=== PATIENT | female | born 1955 | race Caucasian/White ===

== ENCOUNTER 2018-02-12 08:17 | Day surgery (SDC) | payer BC ==
[~2018-02-12 08:17] MED LIST: Bupivacaine 0.5%/EPINEPHrine 1:200,000 50 ML MDV ONE; Midazolam 1 MG/ML 2 ML SDV ONE; Propofol 200 MG/20 ML SDV ONE; fentaNYL 100 MCG/2 ML SDV ONE
[2018-02-12] MEDS ORDERED: Dextrose 5%-Lactated Ringers 1,000 ML IV SCH (09:45)
--- NOTE | 2018-02-23 09:14 | OR ---
DATE OF PROCEDURE: 02/12/2018 PREOPERATIVE DIAGNOSIS: Prolapsed thrombosed hemorrhoid. POSTOPERATIVE DIAGNOSIS: Prolapsed thrombosed hemorrhoid associated with adherence of blood in the hemorrhoidal wall. OPERATIVE PROCEDURE: Incision and drainage of thrombosed hemorrhoid with excision of involved hemorrhoid, single column ([id number]). ANESTHESIA: General. ELECTRICIAN SUBSTATION: PAS. Inés INDICATION FOR PROCEDURE: This is a 62-year-old presenting with a painful thrombosed hemorrhoid. Plan is to proceed with drainage of this. Potential risks including bleeding and infection were reviewed, and the patient wishes to proceed. She was also aware there was some possibility of the issues of fecal incontinence following the procedure, and likewise, wishes to proceed. DETAILS OF PROCEDURE: The patient was taken to the operating room and placed in a supine position. After general endotracheal anesthesia was induced, converted to the lithotomy position. The thrombosed hemorrhoid which was located posteriorly was then incised and the clot was then evacuated from this. The wall of the hemorrhoid had quite a bit in the way of hemosiderin-type staining, which was felt probably due to continued inflammation. Given this, the single column of hemorrhoid which was mixed internal and external hemorrhoids, at this point was excised and that wound then left open. After cauterization of some bleeding, the area was anesthetized with 0.25% Marcaine. A roseanna pad was placed, and the patient was taken to the recovery room in satisfactory condition. There were no evident complications noted. Carloz Roberto MD Job #: [id number]
== END 2018-02-12 12:05 | disposition home or self-care (01) ==
LOC: JP.SDS 08:17
PROVIDERS: ATTEND Surgery
DX: K64.5 Perianal venous thrombosis (principal); K21.9 Gastro-esophageal reflux disease without esophagitis; E03.9 Hypothyroidism, unspecified; I10 Essential (primary) hypertension; E78.5 Hyperlipidemia, unspecified; E66.9 Obesity, unspecified; Z68.32 Body mass index [BMI] 32.0-32.9, adult; Z79.82 Long term (current) use of aspirin; Z79.899 Other long term (current) drug therapy; Z88.1 Allergy status to other antibiotic agents; Z88.5 Allergy status to narcotic agent; Z88.6 Allergy status to analgesic agent; Z88.8 Allergy status to other drugs, medicaments and biological substances; Z91.041 Radiographic dye allergy status
CPT/HCPCS: 46320; 88304; A9270; J2250; J2704; J3010; J7042

== ENCOUNTER 2020-02-03 19:27 | Emergency (ER) | payer MEDICARE, BC ==
--- NOTE | 2020-02-03 20:28 | EDM.PDOC ---
ED HPI GENERAL MEDICAL PROBLEM - General Chief Complaint: Genitourinary Problem Stated Complaint: POSSIBLE UTI Time Seen by Provider: 02/03/20 20:15 Source of Information: Reports: Patient History Limitations: Reports: No Limitations - History of Present Illness INITIAL COMMENTS - FREE TEXT/NARRATIVE: 64-year-old female with dysuria and increased urinary frequency for the past 12 hours. She took some cranberry pills but it is not significantly improving so she came in to be checked. No fevers or chills or back pain. She has had UTIs in the past. Onset: Sudden (Symptoms started fairly suddenly 12 hours ago) Associated Symptoms: Reports: No Other Symptoms Pelvic Pain Score (Numeric/FACES): 4 - Related Data Allergies Allergy/AdvReac Type Severity Reaction Status Date / Time ciprofloxacin Allergy Cannot Verified 02/03/20 19:49 Remember codeine Allergy Hallucinati Verified 02/03/20 19:49 ons iodine Allergy Swelling Verified 02/03/20 19:49 lansoprazole Allergy Shaking Verified 02/03/20 19:49 [From PREVACID NapraPAC] naproxen Allergy Shaking Verified 02/03/20 19:49 [From PREVACID NapraPAC] Home Meds: Home Meds Aspirin 81 mg PO DAILY 02/11/18 [History] Diclofenac Sodium [Voltaren] 100 gm TP QID PRN 02/11/18 [History] Glucosam/Chondr/Collagn/Hyalur [Glucosamine & Chondroitin Cap] 1 each PO DAILY 02/11/18 [History] Levothyroxine Sodium [Synthroid] 75 mg PO DAILY 02/11/18 [History] Losartan [Cozaar] 50 mg PO DAILY 02/11/18 [History] Multivitamin [Multivitamins] 1 each PO DAILY 02/11/18 [History] Past Medical History HEENT History: Reports: Impaired Vision Cardiovascular History: Reports: Hypertension Respiratory History: Reports: None Gastrointestinal History: Reports: GERD, Hemorrhoids Genitourinary History: Reports: UTI, Recurrent NEGATIVE RETOUCHER History: Reports: , Spontaneous Musculoskeletal History: Reports: Other (See Below) Other Musculoskeletal History: s/p R knee scope 04/05/19. Pain behind R knee after PT therapies Neurological History: Reports: None Psychiatric History: Reports: Panic Attack Endocrine/Metabolic History: Reports: Hypothyroidism, Obesity/BMI 30+ Hematologic History: Reports: None Immunologic History: Reports: None Oncologic (Cancer) History: Reports: None Dermatologic History: Reports: None - Infectious Disease History Infectious Disease History: Reports: Chicken Pox, Measles - Past Surgical History Head Surgeries/Procedures: Reports: None HEENT Surgical History: Reports: Tonsillectomy Cardiovascular Surgical History: Reports: None GI Surgical History: Reports: Appendectomy, Colonoscopy, EGD, Mildred Fundoplication Female Surgical History: Reports: Section, Cervical Cryotherapy, Other (See Below) Other Female Surgeries/Procedures: hysteroscopy Endocrine Surgical History: Reports: None Musculoskeletal Surgical History: Reports: Other (See Below) Other Musculoskeletal Surgeries/Procedures:: trigger finger Dermatological Surgical History: Reports: None Social & Family History - Family History Family Medical History: Noncontributory - Tobacco Use Smoking Status *Q: Never Smoker Second Hand Smoke Exposure: No - Caffeine Use Caffeine Use: Reports: Soda - Recreational Drug Use Recreational Drug Use: No ED ROS GENERAL - Review of Systems Review Of Systems: See Below Constitutional: Denies: Fever, Chills, Malaise HEENT: Reports: No Symptoms Respiratory: Denies: Shortness of Breath Cardiovascular: Denies: Chest Pain GI/Abdominal: Denies: Abdominal Pain, Nausea, Vomiting Skin: Reports: No Symptoms Neurological: Reports: No Symptoms ED EXAM, RENAL/ - Physical Exam Exam: See Below Exam Limited By: No Limitations General Appearance: Alert, No Apparent Distress Head: Atraumatic Respiratory/Chest: No Respiratory Distress GI/Abdominal: Non-Tender Back Exam: No: CVA Tenderness (R), CVA Tenderness (L) Neurological: Alert, Oriented Psychiatric: Normal Affect, Normal Mood Course - Vital Signs Last Recorded V/S: Last Vital Signs Temp 95.7 F L 02/03/20 19:46 Pulse 83 02/03/20 19:46 Resp 16 02/03/20 19:46 BP 145/92 H 02/03/20 19:46 Pulse Ox 95 02/03/20 19:46 - Orders/Labs/Meds Orders: Active Orders 24 hr Category Date Time Status CULTURE URINE [RM] Stat Lab 02/03/20 20:25 Received Labs: Laboratory Tests 02/03/20 Range/Units 19:57 Urine Color Yellow (YELLOW) Urine Appearance Cloudy A (CLEAR) Urine pH 5.5 (5.0-8.0) Ur Specific [place] 1.020 (1.008-1.030) Urine Protein Negative (NEGATIVE) mg/dL Urine Glucose (UA) Negative (NEGATIVE) mg/dL Urine Ketones Negative (NEGATIVE) mg/dL Urine Occult Blood Moderate H (NEGATIVE) Urine Nitrite Negative (NEGATIVE) Urine Bilirubin Negative (NEGATIVE) Urine Urobilinogen 0.2 (0.2-1.0) EU/dL Ur Leukocyte Esterase Moderate H (NEGATIVE) Urine RBC Semi-packed H (0-5) Urine WBC Packed H (0-5) Ur Epithelial Cells Rare Amorphous Sediment Few Urine Bacteria Rare Urine Mucus Not seen - Re-Assessments/Exams Free Text/Narrative Re-Assessment/Exam: 02/03/20 20:51 UA is positive with many WBCs, RBCs, and some rare bacteria. Bacterial load is probably low because of the cranberry pills. A urine culture is initiated and patient will be placed on Macrobid twice daily for the next 7 days. Return if worsening. Departure - Departure Time of Disposition: 20:36 Disposition: Home, Self-Care 01 Clinical Impression: UTI, Urinary tract infectious disease - Discharge Information Instructions: Urinary Tract Infection, Adult, [id number] Referrals: Oseas Otero MD [Primary Care Provider] - Forms: ED Department Discharge Care Plan Goals: Take antibiotic twice a day for the next 7 days, and call or return in 2 or 3 days if not improving satisfactorily. Return sooner if worsening such as high fever, increased pain or vomiting the medication. Phenazopyridine is [id number] and can help with bladder spasms. Sepsis Event Note (ED) - Evaluation Sepsis Screening Result: No Definite Risk - Focused Exam Vital Signs: Vital Signs Temp Pulse Resp BP Pulse Ox 02/03/20 19:46 95.7 F L 83 16 145/92 H 95 - My Orders Last 24 Hours: My Active Orders 02/03/20 20:25 CULTURE URINE [RM] Stat - Assessment/Plan Last 24 Hours: My Active Orders 02/03/20 20:25 CULTURE URINE [RM] Stat
== END 2020-02-03 20:35 | disposition home or self-care (01) ==
LOC: JP.ED 19:27
DX: N39.0 Urinary tract infection, site not specified (principal); I10 Essential (primary) hypertension; E66.9 Obesity, unspecified; E03.9 Hypothyroidism, unspecified; Z88.1 Allergy status to other antibiotic agents; Z88.5 Allergy status to narcotic agent; Z88.8 Allergy status to other drugs, medicaments and biological substances; Z79.82 Long term (current) use of aspirin; Z79.899 Other long term (current) drug therapy; Z68.34 Body mass index [BMI] 34.0-34.9, adult
CPT/HCPCS: 81001; 87086; 87088; 87186; 99283

== ENCOUNTER 2020-03-08 05:42 | Day surgery (SDC) | payer MEDICARE, BC ==
[2020-03-08] MEDS: Nozin Nasal Sanitizer NASBOTH SCH ×2 (06:23→21:14)
[2020-03-08] MEDS ORDERED: Lactated Ringers 1,000 ML IV SCH (06:30)
[2020-03-08] MEDS ORDERED: Bupivacaine 0.5% 30 ML SDV ONE (06:47)
[2020-03-08] MEDS ORDERED: Propofol 200 MG/20 ML SDV ONE ×2 (07:28→08:34)
[2020-03-08] MEDS ORDERED: Midazolam 1 MG/ML 2 ML SDV ONE (07:28)
[2020-03-08] MEDS ORDERED: fentaNYL 100 MCG/2 ML SDV ONE (07:28)
[2020-03-08] MEDS ORDERED: ceFAZolin 2 GM in Premix Bag 1 BAG IV ONE (07:30)
[2020-03-08] MEDS ORDERED: Lactated Ringers 1,000 ML ONE (08:54)
[2020-03-08] MEDS ORDERED: Magnesium Hydroxide 400 MG/5 ML Susp 30 ML Cup PO PRN (09:23)
[2020-03-08] MEDS ORDERED: Acetaminophen/oxyCODONE 325-5 MG Tab PO PRN (09:23)
[2020-03-08] MEDS ORDERED: Ondansetron 4 MG/2 ML SDV IVPUSH PRN (09:23)
[2020-03-08] MEDS ORDERED: Acetaminophen 325 MG Tab PO PRN (09:23)
[2020-03-08] MEDS ORDERED: Morphine 2 MG/ML SYRINGE IVPUSH PRN (09:23)
--- NOTE | 2020-03-08 09:59 | CR ---
Knee 1V or 2V Rt CLINICAL HISTORY: Postarthroplasty FINDINGS: Patient is status post a medial right knee hemiarthroplasty. There is intra-articular and subcutaneous air. Components appear well seated. Impression: Status post right knee medial hemiarthroplasty
[2020-03-08] MEDS: Sodium Chloride 0.9% 1,000 ML IV SCH (13:08)
[2020-03-08] MEDS: traMADol 50 MG Tab PO PRN ×2 (14:03→21:17)
[2020-03-08] MEDS: ceFAZolin 1 GM in Premix Bag 1 BAG IV SCH (15:40)
[2020-03-08] MEDS: Docusate Sodium 100 MG Cap PO SCH (21:15)
[2020-03-09] MEDS: ceFAZolin 1 GM in Premix Bag 1 BAG IV SCH (00:05)
[2020-03-09] MEDS: traMADol 50 MG Tab PO PRN ×5 (02:43→22:37)
[2020-03-09] MEDS: Sodium Chloride 0.9% 1,000 ML IV SCH (02:48)
[2020-03-09] MEDS: Levothyroxine 25 MCG Tab PO SCH (07:42)
[2020-03-09] MEDS: Aspirin 81 MG Tab.Chew PO SCH (08:04)
[2020-03-09] MEDS: Losartan 50 MG Tab PO SCH (08:04)
[2020-03-09] MEDS: Nozin Nasal Sanitizer NASBOTH SCH ×2 (08:04→20:48)
[2020-03-09] MEDS: Docusate Sodium 100 MG Cap PO SCH ×2 (08:04→20:49)
[2020-03-10] MEDS: traMADol 50 MG Tab PO PRN ×2 (04:39→14:09)
[2020-03-10] MEDS: Levothyroxine 25 MCG Tab PO SCH (07:16)
[2020-03-10] MEDS: Docusate Sodium 100 MG Cap PO SCH (09:21)
[2020-03-10] MEDS: Aspirin 81 MG Tab.Chew PO SCH (09:21)
[2020-03-10] MEDS: Losartan 50 MG Tab PO SCH (09:21)
[2020-03-10] MEDS: Nozin Nasal Sanitizer NASBOTH SCH (09:21)
--- NOTE | 2020-03-17 17:34 | OR ---
DATE OF PROCEDURE: 03/08/2020 SURGEON: Fidel Myers MD POSTOPERATIVE DIAGNOSIS: Osteoarthritis, medial compartment, right knee. POSTOPERATIVE DIAGNOSIS: Osteoarthritis, medial compartment, right knee. PROCEDURE: Right medial unicompartmental arthroplasty utilizing [employer] ZUK components with a size 1 tibia, C femur, and 9 mm polyethylene. COMPLICATIONS: Nondisplaced fracture of tibial plateau, treated with a cannulated screw. ANESTHESIA: Spinal with sedation. INDICATIONS: Lizbeth is a 64-year-old female with history of progressive pain in her right knee for the past several months. She has failed conservative treatment. X-ray and imaging are consistent with medial joint space collapse and osteoarthritis. She now presents for a medial unicompartmental arthroplasty. Risks, benefits, potential complications of the procedure were discussed. DESCRIPTION OF PROCEDURE: After adequate anesthesia was obtained, patient was placed supine with a tourniquet about the right upper thigh. Right leg was prepped and draped in a sterile fashion. Leg was exsanguinated and tourniquet inflated to 300 mmHg pressure. An anterior incision was made just medial of midline and carried down through the subcutaneous tissues. Medial parapatellar arthrotomy was performed up to the insertion of the VMO. A portion of the fat pad is excised along with the anterior horn of the medial meniscus. Retractors were placed and the anterior lip of the tibial plateau was resected with an oscillating saw. The leg was extended, extramedullary alignment jig was placed, aligned and secured to the femur and tibia. A distal femoral cut was made. This portion of the cutting jig was removed and the knee was then flexed. The proximal tibia resection was made with an oscillating and reciprocating saw. The guide was then removed. The remaining medial meniscus was excised. The femur was then sized to a C component. The C cutting jig was secured, remaining femoral cuts and drill holes were made. The femoral trial was placed with excellent fit. The tibial plateau was then sized. #1 tibial plate which is the smallest available showed overhang both posteriorly and medially. Additional portion of the plateau was resected more laterally and the plate was trialed once again. This still showed some overhang and another more lateralizing cut was made. During the process of taking the tibial plate in and out, trialing it, and assessing its position and stability, a crack was noted running from front to back of the medial tibial plateau. A cannulated screw was placed percutaneously below the joint line. The screw with a washer was used to compress the fracture into position with anatomic reduction. The trialing then continued with good fit of the #1 trial. A 9 mm insert provided good balance in flexion and extension. The trials were then removed. The knee was thoroughly irrigated with pulse lavage. Bone surfaces were dried. The components were cemented in place. Excess cement was removed, and the knee was then held in full extension with a 9 mm insert and the 2 mm spacer gauge while the cement cured. Knee was again taken through range of motion and the 9 mm trial provided good balance in flexion and extension with a 2 mm gap in both. Trials were removed. The knee was irrigated. Final polyethylene was snapped into position and the knee was then irrigated with a dilute Betadine solution followed by pulse lavage. The capsule was then closed with #2 Ethibond in a running fashion. Skin was closed with 2-0 Vicryl and a running 3-0 Monocryl. Steri- Strips were applied. Light compressive dressing was then placed. The patient tolerated the procedure well, was taken from the operating room in a stable condition. Fidel Myers MD /[id number] LOIS
== END 2020-03-10 14:25 | disposition home or self-care (01) ==
LOC: JP.SDS 05:42 → JP.MS 09:23 → JP.SDS 03-10 14:25
PROVIDERS: ATTEND Specialist
DX: M17.11 Unilateral primary osteoarthritis, right knee (principal); M96.671 Fracture of tibia or fibula following insertion of orthopedic implant, joint prosthesis, or bone plate, right leg; I10 Essential (primary) hypertension; K21.9 Gastro-esophageal reflux disease without esophagitis; E03.9 Hypothyroidism, unspecified; Z79.899 Other long term (current) drug therapy; Z79.82 Long term (current) use of aspirin; Z88.5 Allergy status to narcotic agent; Z91.041 Radiographic dye allergy status; Z88.1 Allergy status to other antibiotic agents; Z68.32 Body mass index [BMI] 32.0-32.9, adult
CPT/HCPCS: 36415; 73560-26-RT; 73560-RT; 80053; 85027; 97110-GP; 97116-GP; 97161-GP; 97530-GP; 97535-GP; A9270-GY; C1713; C1776; J0690; J2250; J2270; J2405; J2704; J3010; J3490; J7030; J7120

== ENCOUNTER 2020-11-15 07:09 | Day surgery (SDC) | payer MEDICARE, BC ==
[~2020-11-15 07:09] MED LIST changes: +Bupivacaine 0.5% 30 ML SDV ONE; -Bupivacaine 0.5%/EPINEPHrine 1:200,000 50 ML MDV ONE; -Midazolam 1 MG/ML 2 ML SDV ONE; -Propofol 200 MG/20 ML SDV ONE; -fentaNYL 100 MCG/2 ML SDV ONE
[2020-11-15] MEDS ORDERED: Nozin Nasal Sanitizer NASBOTH ONE (07:15)
[2020-11-15] MEDS ORDERED: Glycopyrrolate 0.2 MG/ML 5 ML MDV ONE (07:40)
[2020-11-15] MEDS ORDERED: Dexamethasone 4 MG/ML SDV ONE (07:40)
[2020-11-15] MEDS ORDERED: Neostigmine Methylsulfate 1 MG/ML 5 ML Syringe ONE (07:40)
[2020-11-15] MEDS ORDERED: Rocuronium 50 MG/5 ML Vial ONE (07:40)
[2020-11-15] MEDS ORDERED: Ondansetron 4 MG/2 ML SDV ONE (07:40)
[2020-11-15] MEDS ORDERED: fentaNYL 250 MCG/5 ML SDV ONE (07:40)
[2020-11-15] MEDS ORDERED: Propofol 200 MG/20 ML SDV ONE (07:40)
[2020-11-15] MEDS ORDERED: Succinylcholine 200 MG/10 ML MDV ONE (07:40)
[2020-11-15] MEDS ORDERED: ceFAZolin 2 GM in Premix Bag 1 BAG IV ONE (08:00)
[2020-11-15] MEDS ORDERED: ceFAZolin 2 GM in Sodium Chloride 0.9% 50 ML IV ONE (08:00)
[2020-11-15] MEDS ORDERED: Lactated Ringers 1,000 ML IV SCH (08:00)
[2020-11-15] MEDS ORDERED: Ketorolac 60 MG/2 ML SDV ONE (10:09)
[2020-11-15] MEDS ORDERED: Naloxone 0.4 MG/ML SDV ONE (10:17)
[2020-11-15] MEDS ORDERED: traMADol 50 MG Tab PO ONE (11:42)
--- NOTE | 2020-11-15 14:12 | PCM.CONS ---
H&P History of Present Illness - General Date of Service: 11/15/20 Admit Problem/Dx: Ms. Camejo is a 65-year-old woman who I been asked to see by anesthesia service and Dr. Spaulding for hospitalist consult concerning possible bradycardia. She was admitted today for arthroscopic surgery of her knee. During the surgical procedure was noted to have bigeminal PVCs but was otherwise stable. During the postoperative period nursing staff reported a heart rate in the 30s, unfortunately during this period of time she was not on the data processing specialist. EKG was obtained which did show sinus rhythm with frequent premature ventricular complexes. During this period of time the patient denied any significant symptoms including no lightheadedness, weakness, chest pain, shortness of breath, or palpitations. She has no prior history of cardiac disease. Specifically she denies known coronary artery disease, congestive heart failure, heart murmur, cardiac dysrhythmias, or history of rheumatic fever. She denies recent symptoms of chest pain or shortness of breath with activity and has noted no significant change in her exercise tolerance. Source of Information: Patient, Family, Provider, RN Notes Reviewed History Limitations: Reports: No Limitations Right Leg Pain Score (Numeric/FACES): 1 - Related Data Allergies/Adverse Reactions: Allergies Allergy/AdvReac Type Severity Reaction Status Date / Time ciprofloxacin Allergy Cannot Verified 11/15/20 07:26 Remember codeine Allergy Hallucinati Verified 11/15/20 07:26 ons iodine Allergy Swelling Verified 11/15/20 07:26 lansoprazole Allergy Shaking Verified 11/15/20 07:26 [From PREVACID NapraPAC] naproxen Allergy Shaking Verified 11/15/20 07:26 [From PREVACID NapraPAC] Home Medications: Home Meds Aspirin 81 mg PO DAILY 02/11/18 [History] Diclofenac Sodium [Voltaren] 100 gm TP QID PRN 02/11/18 [History] Levothyroxine Sodium [Synthroid] 75 mcg PO DAILY 02/11/18 [History] Losartan [Cozaar] 50 mg PO DAILY 02/11/18 [History] Multivitamin [Multivitamins] 1 each PO DAILY 02/11/18 [History] Oxyquinoline Sulfate [Hydroxyquinoline Sulfate] 1 gm VAG DAILY 09/27/20 [History] Glucosamine HCl [Glucosamine] 1,500 mg PO DAILY 11/15/20 [History] Past Medical History HEENT History: Reports: Impaired Vision Cardiovascular History: Reports: Hypertension Respiratory History: Reports: None Gastrointestinal History: Reports: GERD, Hemorrhoids, Hiatal Hernia Genitourinary History: Reports: UTI, Recurrent FAMILY MEDIATOR History: Reports: , Spontaneous Musculoskeletal History: Reports: Other (See Below) Other Musculoskeletal History: right knee pain Neurological History: Reports: None Psychiatric History: Reports: Panic Attack Endocrine/Metabolic History: Reports: Hypothyroidism, Obesity/BMI 30+ Hematologic History: Reports: None Immunologic History: Reports: None Oncologic (Cancer) History: Reports: None Dermatologic History: Reports: None - Infectious Disease History Infectious Disease History: Reports: Chicken Pox, Measles - Past Surgical History Head Surgeries/Procedures: Reports: None HEENT Surgical History: Reports: Tonsillectomy Cardiovascular Surgical History: Reports: None GI Surgical History: Reports: Appendectomy, Colonoscopy, EGD, Mildred Fundoplication Female Surgical History: Reports: Section, Cervical Cryotherapy, Other (See Below) Other Female Surgeries/Procedures: hysteroscopy Endocrine Surgical History: Reports: None Musculoskeletal Surgical History: Reports: Knee Replacement, Other (See Below) Other Musculoskeletal Surgeries/Procedures:: right partial knee 03/08/20, trigger finger release Dermatological Surgical History: Reports: None Social & Family History - Family History Family Medical History: No Pertinent Family History - Tobacco Use Tobacco Use Status *Q: Never Tobacco User Second Hand Smoke Exposure: No - Caffeine Use Caffeine Use: Reports: Soda - Recreational Drug Use Recreational Drug Use: No H&P Review of Systems - Review of Systems: Review Of Systems: See Below Pulmonary: Reports: No Symptoms Cardiovascular: Reports: No Symptoms Gastrointestinal: Reports: No Symptoms Exam - Exam Exam: See Below - Vital Signs Vital Signs: Last Vital Signs Temp 96.3 F L 11/15/20 10:56 Pulse 61 11/15/20 13:10 Resp 16 11/15/20 13:10 BP 122/73 11/15/20 13:10 Pulse Ox 95 11/15/20 10:56 Weight: 174 lb 6.4 oz - Exam General: Alert, Oriented, Cooperative Neck: Supple, Trachea Midline Lungs: Clear to Auscultation, Normal Respiratory Effort Cardiovascular: Regular Rate, Regular Rhythm, Normal S1, Normal S2. No: Systolic Murmur, Diastolic Murmur GI/Abdominal Exam: Soft, Non-Tender, No Organomegaly, No Distention Back Exam: Normal Inspection, Full Range of Motion Skin: Warm, Dry - Patient Data Lab Results Last 24 hrs: Laboratory Results - last 24 hr 11/15/20 11/15/20 Range/Units 07:23 07:23 WBC 4.7 (4.5-11.0) K/uL RBC 4.95 (3.30-5.50) M/uL Hgb 14.1 (12.0-15.0) g/dL Hct 43.9 (36.0-48.0) % MCV 89 (80-98) fL MCH 29 (27-31) pg MCHC 32 (32-36) % Plt Count 263 (150-400) K/uL Sodium 147 (140-148) mmol/L Potassium 3.9 (3.6-5.2) mmol/L Chloride 109 H (100-108) mmol/L Carbon Dioxide 27 (21-32) mmol/L Anion Gap 14.9 H (5.0-14.0) mmol/L BUN 18 (7-18) mg/dL Creatinine 0.9 (0.6-1.0) mg/dL Est Cr Clr Drug Dosing 46.40 mL/min Estimated GFR (MDRD) > 60 (>60) Glucose 94 (74-106) mg/dL Calcium 8.8 (8.5-10.1) mg/dL Total Bilirubin 0.5 (0.2-1.0) mg/dL AST 24 (15-37) U/L ALT 37 (12-78) U/L Alkaline Phosphatase 64 (46-116) U/L Total Protein 6.6 (6.4-8.2) g/dL Albumin 3.5 (3.4-5.0) g/dL Globulin 3.1 (2.3-3.5) g/dL Albumin/Globulin Ratio 1.1 L (1.2-2.2) Result Diagrams: 11/15/20 07:23 11/15/20 07:23 Sepsis Event Note - Focused Exam Vital Signs: Vital Signs Temp Pulse Resp BP Pulse Ox 11/15/20 13:10 61 16 122/73 11/15/20 12:55 62 16 136/73 11/15/20 12:40 61 16 130/70 11/15/20 12:05 32 L 16 131/76 11/15/20 11:47 55 L 16 134/71 11/15/20 11:30 46 L 16 122/75 11/15/20 11:15 50 L 16 140/70 11/15/20 10:56 96.3 F L 50 L 16 140/77 95 11/15/20 10:50 96.4 F L 55 L 16 130/70 99 11/15/20 10:46 52 L 16 121/71 99 11/15/20 10:40 60 16 123/66 100 11/15/20 10:36 96.4 F L 59 L 16 127/73 100 11/15/20 10:30 59 L 16 132/69 100 11/15/20 10:25 63 16 126/75 100 11/15/20 10:20 96.8 F L 61 16 140/81 99 11/15/20 07:52 97.3 F 63 16 125/70 95 Consult PN Assessment/Plan Procedures: Procedures BREAST TOMOSYNTHESIS BI (08/17/20) COMP SCREEN MAMMOGRAM ADD-ON (07/22/16) COMPLETE CBC AUTOMATED (03/08/20) COMPREHEN METABOLIC PANEL (03/08/20) DRAIN/INJ JOINT/BURSA W/O US (02/25/19) EMERGENCY DEPT VISIT (02/03/20) GAIT TRAINING THERAPY (04/11/20) HOT OR COLD PACKS THERAPY (05/13/19) KNEE ARTHROSCOPY/SURGERY (04/05/19) MAMMOGRAM SCREENING (05/12/13) MANUAL THERAPY 1/> REGIONS (10/11/20) MICROBE SUSCEPTIBLE TE (02/03/20) MRI JNT OF LWR EXTRE W/O DYE (02/28/20) OFFICE O/P EST LOW 20-29 MIN (02/29/20) OFFICE O/P NEW SF 15-29 MIN (02/25/19) POSTOP FOLLOW-UP VISIT (03/23/20) PT EVAL LOW COMPLEX 20 MIN (03/08/20) PT EVAL MOD COMPLEX 30 MIN (08/17/20) REMOVAL OF HEMORRHOID CLOT (02/12/18) REVISION OF KNEE JOINT (03/08/20) ROUTINE VENIPUNCTURE (03/08/20) SCR MAMMO BI INCL CAD (08/17/20) SELF CARE MNGMENT TRAINING (03/08/20) THERAPEUTIC ACTIVITIES (06/12/20) THERAPEUTIC EXERCISES (07/07/20) TISSUE EXAM BY PATHOLOGIST (02/12/18) ULTRASOUND THERAPY (10/11/20) URINALYSIS AUTO W/SCOPE (02/03/20) URINE BACTERIA CULTURE (02/03/20) URINE CULTURE/COLONY COUNT (02/03/20) X-RAY EXAM KNEE 4 OR MORE (01/25/20) X-RAY EXAM OF KNEE 1 OR 2 (03/08/20) X-RAY EXAM OF KNEE 3 (06/29/20) X-RAY EXAM OF KNEES (02/25/19) Problem List Initiated/Reviewed/Updated: Yes Plan: ASSESSMENT AND RECOMMENDATIONS POSSIBLE BRADYCARDIA-patient was noted to have possible heart rate in the 30s on palpation by nursing staff. She had been noted to have ventricular bigeminy during the surgical procedure and frequent premature ventricular complexes on EKG and monitoring. I suspect that the palpated rate of 30 was secondary to ventricular bigeminy. She was entirely asymptomatic during this period of time and has no significant cardiac history or any recent symptoms of significant cardiac disease. She is otherwise stable and I believe safe for discharge. This should not require any further evaluation or intervention. Requesting Provider: GERARDO Date Consult Requested: 11/15/20 Reason for Consult: Possible bradycardia Patient History Reviewed: Yes
--- NOTE | 2020-11-29 21:57 | OR ---
DATE OF PROCEDURE: 11/15/2020 SURGEON: Fidel Myers MD PREOPERATIVE DIAGNOSIS: Synovitis, right knee with scar tissue impingement, medial compartment. POSTOPERATIVE DIAGNOSIS: Synovitis, right knee with scar tissue impingement, medial compartment and chondromalacia patellofemoral joint, grade 2, early grade 3. PROCEDURE: Arthroscopy right knee with debridement and limited synovectomy. ANESTHESIA: General. INDICATIONS: Lizbeth is a 65-year-old female with a history of medial unicompartmental arthroplasty of the right knee. She has been experiencing persistent medial pain. She has failed conservative treatment with physical therapy, activity modification, medications, and injection. She now presents for arthroscopic evaluation of the joint for presumed synovitis and impingement of soft tissue. Risks, benefits, and potential complications are discussed. DESCRIPTION OF PROCEDURE: After adequate anesthesia was obtained, the patient placed supine with a tourniquet about the right upper thigh. Right leg was prepped and draped in a sterile fashion. Leg was exsanguinated and tourniquet inflated to 300 mmHg pressure. A standard inferior lateral portal was established and care taken to avoid contact with the prosthesis. Medial portal was then established under visualization. The scope was placed up into the patellofemoral joint and this revealed grade 2 and diffuse body areas of grade 3 change in the patella. No full-thickness loss was noted. Medial compartment revealed impingement of soft tissue predominantly over the anterior edge of the tibial polyethylene. A portion also impinging on the medial edge, but not as severely. Using combination of the shaver and a radiofrequency ablation wand, the scar tissue was debrided from around the edge of the patellar component. Edges were delineated and no other impinging tissues were noted. There was no evidence of infection or loosening. Intercondylar notch revealed intact ACL and PCL. Lateral compartment revealed intact meniscus and articular cartilage. Major weightbearing portions of the patellofemoral joint were intact. No other abnormalities or loose bodies were identified. The knee was drained and scope was withdrawn. Port sites were closed in a standard fashion, infiltrated with Marcaine and a sterile dressing was applied. The patient tolerated procedure very well. There were no complications and taken from the operating room in stable condition. Fidel Myers MD /[id number]
== END 2020-11-15 13:53 | disposition home or self-care (01) ==
LOC: JP.SDS 07:09
PROVIDERS: ATTEND Specialist
DX: M65.861 Other synovitis and tenosynovitis, right lower leg (principal); M22.41 Chondromalacia patellae, right knee; M25.861 Other specified joint disorders, right knee; I10 Essential (primary) hypertension; E03.9 Hypothyroidism, unspecified; E66.9 Obesity, unspecified; Z68.33 Body mass index [BMI] 33.0-33.9, adult; Z88.6 Allergy status to analgesic agent; Z98.890 Other specified postprocedural states
CPT/HCPCS: 29875; 36415; 80053; 85027; 93005; A9270; J0330; J0690; J1100; J1885; J2310; J2405; J2704; J2710; J3010; J3490; J7120

== ENCOUNTER 2021-04-20 20:32 | Emergency (ER) | payer MEDICARE, BC ==
--- NOTE | 2021-04-20 21:17 | EDM.PDOC ---
ED HPI GENERAL MEDICAL PROBLEM - General Chief Complaint: Genitourinary Problem Stated Complaint: BLADDER INFECTION Time Seen by Provider: 04/20/21 21:05 Source of Information: Reports: Patient History Limitations: Reports: No Limitations - History of Present Illness INITIAL COMMENTS - FREE TEXT/NARRATIVE: 65-year-old female with dysuria, increased urinary frequency for the past 24 hours. This is very similar to the symptoms she had last year when I saw her, she did have a UTI with E. coli and responded well to Macrodantin. She denies fever or chills, denies nausea or vomiting, no back pain. Onset: Gradual Duration: Day(s): (24 hours of symptoms) Location: Reports: Abdomen (Lower abdominal discomfort, mild) Associated Symptoms: Reports: Malaise. Denies: Fever/Chills, Headaches, Loss of Appetite, Nausea/Vomiting, Shortness of Breath Bladder Pain Score (Numeric/FACES): 1 - Related Data Allergies Allergy/AdvReac Type Severity Reaction Status Date / Time ciprofloxacin Allergy Cannot Verified 04/20/21 20:54 Remember codeine Allergy Hallucinati Verified 04/20/21 20:54 ons iodine Allergy Swelling Verified 04/20/21 20:54 lansoprazole Allergy Shaking Verified 04/20/21 20:54 [From PREVACID NapraPAC] naproxen Allergy Shaking Verified 04/20/21 20:54 [From PREVACID NapraPAC] Home Meds: Home Meds Aspirin 81 mg PO DAILY 02/11/18 [History] Diclofenac Sodium [Voltaren] 100 gm TP QID PRN 02/11/18 [History] Levothyroxine Sodium [Synthroid] 75 mcg PO DAILY 02/11/18 [History] Losartan [Cozaar] 50 mg PO DAILY 02/11/18 [History] Oxyquinoline Sulfate [Hydroxyquinoline Sulfate] 1 gm VAG WEEKLY 09/27/20 [History] No122/Iron/Folic Acid [ Multi Tablet] 1 each PO DAILY 30 Days #30 tablet 03/06/21 [Rx] Past Medical History HEENT History: Reports: Impaired Vision Cardiovascular History: Reports: Hypertension Respiratory History: Reports: None Gastrointestinal History: Reports: GERD, Hemorrhoids, Hiatal Hernia Genitourinary History: Reports: UTI, Recurrent [employer] History: Reports: , Spontaneous Musculoskeletal History: Reports: Other (See Below) Other Musculoskeletal History: right knee pain Neurological History: Reports: None Psychiatric History: Reports: Panic Attack Endocrine/Metabolic History: Reports: Hypothyroidism, Obesity/BMI 30+ Hematologic History: Reports: None Immunologic History: Reports: None Oncologic (Cancer) History: Reports: None Dermatologic History: Reports: None - Infectious Disease History Infectious Disease History: Reports: Chicken Pox, Measles - Past Surgical History Head Surgeries/Procedures: Reports: None HEENT Surgical History: Reports: Tonsillectomy Cardiovascular Surgical History: Reports: None GI Surgical History: Reports: Appendectomy, Colonoscopy, EGD, Mildred Fundoplication Female Surgical History: Reports: Section, Cervical Cryotherapy, Other (See Below) Other Female Surgeries/Procedures: hysteroscopy Endocrine Surgical History: Reports: None Musculoskeletal Surgical History: Reports: Knee Replacement, Other (See Below) Other Musculoskeletal Surgeries/Procedures:: right partial knee 03/08/20, trigger finger release. right knee scope 11/15/20 Dermatological Surgical History: Reports: None Social & Family History - Family History Family Medical History: No Pertinent Family History - Tobacco Use Tobacco Use Status *Q: Never Tobacco User - Caffeine Use Caffeine Use: Reports: Soda - Recreational Drug Use Recreational Drug Use: No ED ROS GENERAL - Review of Systems Review Of Systems: See Below Constitutional: Denies: Fever, Chills, Malaise HEENT: Reports: No Symptoms Respiratory: Reports: No Symptoms Cardiovascular: Reports: No Symptoms GI/Abdominal: Reports: Abdominal Pain (Mild lower abdominal discomfort) : Reports: Dysuria, Frequency. Denies: Hematuria Neurological: Reports: No Symptoms ED EXAM, RENAL/ - Physical Exam Exam: See Below Exam Limited By: No Limitations General Appearance: Alert, No Apparent Distress Head: Atraumatic Neck: Supple Respiratory/Chest: No Respiratory Distress GI/Abdominal: Non-Tender Back Exam: No: CVA Tenderness (R), CVA Tenderness (L) Neurological: Alert, Oriented Psychiatric: Normal Affect, Normal Mood Skin Exam: Warm, Dry Course - Vital Signs Last Recorded V/S: Last Vital Signs Temp 97.1 F 04/20/21 20:56 Pulse 70 04/20/21 20:56 Resp 14 04/20/21 20:56 BP 140/69 04/20/21 20:56 Pulse Ox 98 04/20/21 20:56 - Orders/Labs/Meds Orders: Active Orders 24 hr Category Date Time Status CULTURE URINE [RM] Stat Lab 04/20/21 21:25 Received Labs: Laboratory Tests 04/20/21 Range/Units 21:10 Urine Color Yellow (YELLOW) Urine Appearance Cloudy A (CLEAR) Urine pH 7.0 (5.0-8.0) Ur Specific [place] 1.015 (1.008-1.030) Urine Protein Negative (NEGATIVE) mg/dL Urine Glucose (UA) Negative (NEGATIVE) mg/dL Urine Ketones Negative (NEGATIVE) mg/dL Urine Occult Blood Moderate H (NEGATIVE) Urine Nitrite Negative (NEGATIVE) Urine Bilirubin Negative (NEGATIVE) Urine Urobilinogen 0.2 (0.2-1.0) EU/dL Ur Leukocyte Esterase Moderate H (NEGATIVE) Urine RBC 10-20 H (0-5) Urine WBC >100 H (0-5) Ur Epithelial Cells Not seen Amorphous Sediment Not seen Urine Bacteria Few Urine Mucus Not seen - Re-Assessments/Exams Free Text/Narrative Re-Assessment/Exam: 04/20/21 21:17 Clean-catch UA was obtained, results pending. 04/20/21 21:23 Urine showed some bacteria and many WBCs. A culture was initiated, patient was placed on Macrobid twice daily for at least 5 days and up to 7 days if needed. She can return if worsening despite treatment, such as fever or increased pain. Departure - Departure Time of Disposition: 21:38 Disposition: Home, Self-Care 01 Clinical Impression: UTI, Urinary tract infectious disease - Discharge Information Instructions: Urinary Tract Infection, Adult Referrals: Oseas Otero MD [Primary Care Provider] - Forms: ED Department Discharge Care Plan Goals: Take antibiotic twice daily, drink lots of water, and you should have rapid improvement over the next few days. Take at least 5 days of antibiotic and up to 7 if needed. Return anytime if worsening such as vomiting the medication, increased pain, fever, or other concerns. Sepsis Event Note (ED) - Evaluation Sepsis Screening Result: No Definite Risk - Focused Exam Vital Signs: Vital Signs Temp Pulse Resp BP Pulse Ox 04/20/21 20:56 97.1 F 70 14 140/69 98 04/20/21 20:45 97.1 F 70 14 140/69 98 - My Orders Last 24 Hours: My Active Orders 04/20/21 21:25 CULTURE URINE [RM] Stat - Assessment/Plan Last 24 Hours: My Active Orders 04/20/21 21:25 CULTURE URINE [RM] Stat
== END 2021-04-20 21:39 | disposition home or self-care (01) ==
LOC: JP.ED 20:32
DX: N39.0 Urinary tract infection, site not specified (principal); I10 Essential (primary) hypertension; K21.9 Gastro-esophageal reflux disease without esophagitis; E03.9 Hypothyroidism, unspecified; E66.9 Obesity, unspecified; Z88.5 Allergy status to narcotic agent; Z88.6 Allergy status to analgesic agent; Z79.82 Long term (current) use of aspirin; Z68.39 Body mass index [BMI] 39.0-39.9, adult; Z79.899 Other long term (current) drug therapy; Z88.1 Allergy status to other antibiotic agents; Z91.041 Radiographic dye allergy status
CPT/HCPCS: 81001; 87086; 87088; 87186; 99283

== ENCOUNTER 2021-05-23 10:48 | Emergency (ER) | payer MEDICARE, BC ==
--- NOTE | 2021-05-23 12:49 | EDM.PDOC ---
ED HPI GENERAL MEDICAL PROBLEM - General Chief Complaint: General Stated Complaint: FROM CLINIC Time Seen by Provider: 05/23/21 13:02 Source of Information: Reports: Patient History Limitations: Reports: No Limitations - History of Present Illness INITIAL COMMENTS - FREE TEXT/NARRATIVE: This is a 65-year-old female who presents with concerns of fatigue, cough, nasal congestion, low-grade fevers, dizziness. She reports that her symptoms started approximately 6 days ago. She was initially having some low-grade fever, T-max 100.5. Initially had nasal congestion and cough but this is improved. Temperatures have normalized as well. She was seen in urgent care 2 days ago and was swabbed for COVID-19, this is pending. She has no dyspnea. No significant headache. No neck stiffness. No urinary symptoms. No abdominal pain. No chest pain. had similar symptoms that started 2 days prior to hers. - Related Data Allergies Allergy/AdvReac Type Severity Reaction Status Date / Time amoxicillin Allergy Hives Verified 05/23/21 11:47 ciprofloxacin Allergy Cannot Verified 05/23/21 11:47 Remember codeine Allergy Hallucinati Verified 05/23/21 11:47 ons iodine Allergy Swelling Verified 05/23/21 11:47 lansoprazole Allergy Shaking Verified 05/23/21 11:47 [From PREVACID NapraPAC] naproxen Allergy Shaking Verified 05/23/21 11:47 [From PREVACID NapraPAC] Penicillins Allergy Hives Verified 05/23/21 11:47 Home Meds: Home Meds Aspirin 81 mg PO DAILY 02/11/18 [History] Diclofenac Sodium [Voltaren] 100 gm TP QID PRN 02/11/18 [History] Levothyroxine Sodium [Synthroid] 75 mcg PO DAILY 02/11/18 [History] Losartan [Cozaar] 50 mg PO DAILY 02/11/18 [History] Oxyquinoline Sulfate [Hydroxyquinoline Sulfate] 1 gm VAG WEEKLY 09/27/20 [History] No122/Iron/Folic Acid [ Multi Tablet] 1 each PO DAILY 30 Days #30 tablet 03/06/21 [Rx] Past Medical History HEENT History: Reports: Impaired Vision Cardiovascular History: Reports: Hypertension Respiratory History: Reports: None Gastrointestinal History: Reports: GERD, Hemorrhoids, Hiatal Hernia Genitourinary History: Reports: UTI, Recurrent [employer]OR [employer] History: Reports: , Spontaneous Musculoskeletal History: Reports: Other (See Below) Other Musculoskeletal History: right knee pain Neurological History: Reports: None Psychiatric History: Reports: Panic Attack Endocrine/Metabolic History: Reports: Hypothyroidism, Obesity/BMI 30+ Hematologic History: Reports: None Immunologic History: Reports: None Oncologic (Cancer) History: Reports: None Dermatologic History: Reports: None - Infectious Disease History Infectious Disease History: Reports: Chicken Pox, Measles - Past Surgical History Head Surgeries/Procedures: Reports: None HEENT Surgical History: Reports: Tonsillectomy Cardiovascular Surgical History: Reports: None GI Surgical History: Reports: Appendectomy, Colonoscopy, EGD, Mildred Fundoplication Female Surgical History: Reports: Section, Cervical Cryotherapy, Other (See Below) Other Female Surgeries/Procedures: hysteroscopy Endocrine Surgical History: Reports: None Musculoskeletal Surgical History: Reports: Knee Replacement, Other (See Below) Other Musculoskeletal Surgeries/Procedures:: right partial knee 03/08/20, trigger finger release. right knee scope 11/15/20 Dermatological Surgical History: Reports: None Social & Family History - Family History Family Medical History: No Pertinent Family History - Tobacco Use Tobacco Use Status *Q: Never Tobacco User - Caffeine Use Caffeine Use: Reports: Soda - Recreational Drug Use Recreational Drug Use: No ED ROS GENERAL - Review of Systems Review Of Systems: See Below Constitutional: Reports: Malaise HEENT: Reports: No Symptoms Respiratory: Reports: Cough Cardiovascular: Reports: No Symptoms. Denies: Chest Pain Endocrine: Reports: No Symptoms GI/Abdominal: Denies: Abdominal Pain : Reports: No Symptoms Musculoskeletal: Reports: No Symptoms Skin: Reports: No Symptoms Neurological: Reports: No Symptoms Psychiatric: Reports: No Symptoms Hematologic/Lymphatic: Reports: No Symptoms Immunologic: Reports: No Symptoms ED EXAM, GENERAL - Physical Exam Exam: See Below Exam Limited By: No Limitations General Appearance: Alert, No Apparent Distress Ears: Normal External Exam Nose: Normal Inspection Throat/Mouth: Normal Inspection Head: Atraumatic, Normocephalic Neck: Normal Inspection Respiratory/Chest: No Respiratory Distress Cardiovascular: Regular Rate, Rhythm GI/Abdominal: Soft, Non-Tender, No Distention Back Exam: Normal Inspection Extremities: Normal Inspection Neurological: Alert, Oriented Psychiatric: Normal Affect Skin Exam: Warm, Dry Course - Vital Signs Last Recorded V/S: Last Vital Signs Temp 37.2 C 05/23/21 11:45 Pulse 81 05/23/21 11:45 Resp 15 05/23/21 11:45 BP 133/83 05/23/21 11:45 Pulse Ox 95 05/23/21 11:45 - Re-Assessments/Exams Free Text/Narrative Re-Assessment/Exam: This is a 65-year-old female presents with concerns of malaise, cough, nasal congestion, symptoms consistent with viral syndrome. Her exam is reassuring. Her vitals are normal. By history and exam she has no symptoms suggestive of occult bacterial infection. She is mostly here today because she is curious why she did not have any blood work performed in urgent care. Discussed that viral syndrome is typically a clinical diagnosis. Her COVID-19 test is still pending. Again today I do not think we need to do further blood work that is going to add anything given the strong consistency of her symptoms with a viral illness. We discussed supportive cares. We discussed indications to return to the emergency department. She is going to continue to quarantine until her COVID-19 test returns. 05/23/21 13:05 Departure - Departure Time of Disposition: 12:47 Disposition: Home, Self-Care 01 Clinical Impression: Viral syndrome - Discharge Information *PRESCRIPTION DRUG MONITORING PROGRAM REVIEWED*: No *COPY OF PRESCRIPTION DRUG MONITORING REPORT IN PATIENT LUÍS: No Referrals: Oseas Otero MD [Primary Care Provider] - Forms: ED Department Discharge Additional Instructions: As discussed your symptoms are consistent with a viral illness. They may be due to COVID-19. Please stay isolated until your test returns. Continue what you are doing, pushing fluids and using Tylenol for fevers and/or aches and pains. If you feel that your symptoms significantly worsen, particularly if you develop shortness of breath and chest pain, we are happy to reevaluate you in the ER. You for trusting us to care for you today. Sepsis Event Note (ED) - Focused Exam Vital Signs: Vital Signs Temp Pulse Resp BP Pulse Ox 05/23/21 11:45 37.2 C 81 15 133/83 95 05/23/21 11:18 37.2 C 81 15 133/83 95
== END 2021-05-23 13:16 | disposition home or self-care (01) ==
LOC: JP.ED 10:48
DX: B34.9 Viral infection, unspecified (principal); I10 Essential (primary) hypertension; E03.9 Hypothyroidism, unspecified; E66.9 Obesity, unspecified; Z68.30 Body mass index [BMI] 30.0-30.9, adult; Z88.0 Allergy status to penicillin; Z88.1 Allergy status to other antibiotic agents; Z88.5 Allergy status to narcotic agent; Z91.048 Other nonmedicinal substance allergy status; Z88.8 Allergy status to other drugs, medicaments and biological substances; Z79.82 Long term (current) use of aspirin; Z79.899 Other long term (current) drug therapy
CPT/HCPCS: 99283

== ENCOUNTER 2023-05-18 16:31 | Emergency (ER) | payer MEDICARE, BC ==
[2023-05-18] MEDS ORDERED: Sodium Chloride 0.9% 10 ML Syringe FLUSH PRN (17:10)
[2023-05-18] MEDS ORDERED: LORazepam 2 MG/ML SDV IVPUSH ONE (17:11)
[2023-05-18 17:23] LABS: BASOPHILS ABSOLUTE AUTO 0.03 K/uL (0.00-0.10); BASOPHILS PERCENT AUTO 0.5 % (0.1-1.3); EOSINOPHILS ABSOLUTE AUTO 0.26 K/uL (0.00-0.40); HEMATOCRIT 39.4 % (34.3-46.0); HEMOGLOBIN 13.2 g/dL (11.2-15.5); IMMATURE GRAN PERCENT AUTO 0.3 % (0.0-0.7); LYMPHOCYTES ABSOLUTE AUTO 1.76 K/uL (0.8-3.3); LYMPHOCYTES PERCENT AUTO 27.1 % (11.4-47.7); MEAN CORPUSCULAR HGB CONC 33.5 g/dL (31.6-35.5); MEAN CORPUSCULAR VOLUME 89.5 fL (81.4-99.0); MONOCYTES ABSOLUTE AUTO 0.32 K/uL (0.20-0.90); MONOCYTES PERCENT AUTO 4.9 % (3.3-12.6); NEUTROPHILS ABSOLUTE AUTO 4.11 K/uL (1.0-7.6); NEUTROPHILS PERCENT AUTO 63.2 % (40.0-78.1); PLATELET COUNT,PLT 241 K/uL (130-375); WHITE BLOOD CELL COUNT,WBC 6.5 K/uL (3.2-11.0)
[2023-05-18 17:28] LABS: IMMATURE GRAN ABSOLUTE AUTO 0.02 K/uL (0.00-0.23)
[2023-05-18 17:45] LABS: PROTHROMBIN TIME 9.8 sec (9.2-10.6); PTT,PARTIAL THROMBOPLSTIN TIME 25.5 sec (21.8-27.3)
[2023-05-18] MEDS ORDERED: diphenhydrAMINE 50 MG/ML SDV IVPUSH ONE (17:45)
[2023-05-18 17:52] LABS: A/G RATIO 1.2 (1.2-2.2); ALANINE AMINOTRANSFERASE,ALT 28 U/L (12-78); ALBUMIN 3.6 g/dL (3.4-5.0); ALKALINE PHOSPHATASE 57 U/L (46-116); ANION GAP 7.3 mmol/L (5.0-14.0); ASPARTATE AMNIOTRANSFERASE,AST 26 U/L (15-37); BILIRUBIN TOTAL 0.4 mg/dL (0.2-1.0); BLOOD UREA NITROGEN,BUN 17 mg/dL (7-18); CALCIUM 8.9 mg/dL (8.5-10.1); CARBON DIOXIDE,CO2 28 mmol/L (21-32); CHLORIDE,CL 105 mmol/L (100-108); CREATININE 0.8 mg/dL (0.6-1.0); EST CRCL DRUG DOSING (CG) 53.23 mL/min; ESTIMATED GFR 80 mL/min (>60); GLUCOSE RANDOM 94 mg/dL (74-106); POTASSIUM,K 3.9 mmol/L (3.6-5.2); PROTEIN TOTAL,TP 6.6 g/dL (6.4-8.2); SODIUM,NA 140 mmol/L (140-148)
[2023-05-18] MEDS ORDERED: Sodium Chloride 0.9% 1,000 ML IV SCH (18:00)
[2023-05-18] MEDS ORDERED: Sodium Chloride 0.9% 10 ML Syringe FLUSH ONE (18:04)
[2023-05-18] MEDS ORDERED: Sodium Chloride 0.9% 75 ML IV SCH (18:15)
[2023-05-18] MEDS ORDERED: Iopamidol 755 Mg/ML 100 ML Bottle IV SCH (18:15)
== END 2023-05-18 20:18 | disposition home or self-care (01) ==
LOC: JP.ED 16:31
DX: G45.4 Transient global amnesia (principal); I10 Essential (primary) hypertension; E03.9 Hypothyroidism, unspecified; E66.9 Obesity, unspecified; Z68.30 Body mass index [BMI] 30.0-30.9, adult; Z88.0 Allergy status to penicillin; Z88.6 Allergy status to analgesic agent; Z88.1 Allergy status to other antibiotic agents; Z88.5 Allergy status to narcotic agent; Z91.041 Radiographic dye allergy status; Z88.8 Allergy status to other drugs, medicaments and biological substances; Z79.82 Long term (current) use of aspirin; Z79.899 Other long term (current) drug therapy
CPT/HCPCS: 36415; 70450; 70496; 70498; 80053; 84484; 85025; 85610; 85730; 93005; 93010; 96374; 96375; 99284; J1200; J2060; J3490; J7030; Q9967